=== PATIENT | female | born 1985 | race Caucasian/White ===

== ENCOUNTER 2018-07-05 03:57 | Inpatient (IN) | payer OTHER ==
[2018-07-05] MEDS ORDERED: LIDOCAINE 1% (MPF) 30 ML INJ INJ (05:00)
[2018-07-05] MEDS ORDERED: CARBOPROST 250 MCG INJ IM (05:00)
[2018-07-05] MEDS ORDERED: OXYTOCIN 30 UNITS/LR 500 ML IV (05:00)
[2018-07-05] MEDS ORDERED: IBUPROFEN 600 MG TAB PO (05:00)
[2018-07-05] MEDS ORDERED: MISOPROSTOL 200 MCG TAB PR (05:00)
[2018-07-05] MEDS ORDERED: BUTORPHANOL 2 MG INJ IV (05:00)
[2018-07-05 06:19] LABS: ADD MAN DIFF? NO
[2018-07-05 06:22] LABS: BASOPHIL # 0.1 10^3/ul (0.0-0.1); BASOPHILS % 0.4 % (0.0-2.0); EOSINOPHILS # 0.1 10^3/ul (0.0-0.5); EOSINOPHILS % 0.7 % (0.0-7.0); HEMATOCRIT 34.4 % (37.0-47.0); HEMOGLOBIN 11.9 g/dl (12.0-16.0); LYMPHOCYTES # 2.1 10^3/ul (0.8-2.9); LYMPHOCYTES % 17.5 % (15.0-51.0); MEAN CORPUSCULAR HGB CONC 34.6 g/dl (32.0-37.0); MEAN CORPUSCULAR VOLUME 92.5 fl (82.0-101.0); MEAN PLATELET VOLUME 10.7 fl (7.4-10.4); MONOCYTE # 1.1 10^3/ul (0.3-0.9); MONOCYTES % 9.1 % (0.0-11.0); NEUTROPHIL # 8.6 10^3/ul (1.6-7.5); NEUTROPHILS % 71.8 % (39.0-77.0); PLATELET COUNT 190 10^3/UL (140-415); RED BLOOD COUNT 3.72 10^6/ul (4.20-5.40)
[2018-07-05 06:28] LABS: INR 0.83; PROTIME 11.5 Sec (11.9-14.9); PT RATIO 0.9
[2018-07-05 06:29] LABS: PARTIAL THROMBOPLASTIN TIME 26.7 Sec (23.0-35.0)
[2018-07-05] MEDS: LACTATED RINGER'S 1,000 ML IV ×4 (06:48→17:42)
[2018-07-05 07:11] LABS: HEPATITIS B SURFACE ANTIGEN NEGATIVE (NEGATIVE)
[2018-07-05] MEDS ORDERED: HYDROmorphONE 0.5 MG/0.5 ML SYG IV ×2 (10:30)
[2018-07-05] MEDS ORDERED: ZOLPIDEM 5 MG TAB PO (10:30)
[2018-07-05] MEDS ORDERED: KETOROLAC 30 MG INJ IV (10:30)
[2018-07-05] MEDS ORDERED: NALOXONE (0.4 MG/ML) INJ IV (10:30)
[2018-07-05] MEDS: ONDANSETRON 4 MG INJ IV (12:17)
[2018-07-05] MEDS: DIPHENHYDRAMINE 50 MG INJ IV (12:45)
[2018-07-05] MEDS: OXYTOCIN 30 UNITS/LR 500 ML IV (16:29)
[2018-07-05 16:51] LABS: RAPID PLASMA REAGIN NONREACTIVE (NR)
[2018-07-05] MEDS: ACETAMINOPHEN 500 MG TAB PO ×2 (17:05→21:34)
[2018-07-05] MEDS: FENTAnyl 2MCG/ML-ROPIV 0.2% 100 ML BAG EPI (18:26)
[2018-07-05] MEDS: CLINDAMYCIN 900 MG/D5W (PMX) 50 ML IVPB (20:29)
[2018-07-06] MEDS: MINERAL OIL LIGHT 10 ML VIAL TOP (00:07)
[2018-07-06] MEDS: METHYLERGONOVINE 0.2 MG INJ IM (00:07)
[2018-07-06] MEDS: OXYTOCIN 30 UNITS/LR 500 ML IV ×3 (00:09→04:40)
[2018-07-06] MEDS ORDERED: MISOPROSTOL 200 MCG TAB PR (00:30)
[2018-07-06] MEDS: LACTATED RINGER'S 1,000 ML IV* ×3 (00:30→13:00)
[2018-07-06] MEDS ORDERED: OXYTOCIN 30 UNITS/LR 500 ML IV (00:30)
[2018-07-06] MEDS ORDERED: CARBOPROST 250 MCG INJ IM (00:30)
[2018-07-06] MEDS ORDERED: METHYLERGONOVINE 0.2 MG INJ IM (00:30)
[2018-07-06] MEDS: BENZOCAINE 20% 56 ML SPRAY TOP (04:40)
[2018-07-06] MEDS: WITCH HAZEL/GLYCERIN PAD PR (04:40)
[2018-07-06] MEDS: LANOLIN HPA 1 PKT TOP (04:41)
[2018-07-06] MEDS: IBUPROFEN 600 MG TAB PO ×4 (05:22→22:20)
[2018-07-06] MEDS ORDERED: IBUPROFEN 600 MG TAB PO (22:30)
[2018-07-07] MEDS: LACTATED RINGER'S 1,000 ML IV* (00:30)
[2018-07-07] MEDS: IBUPROFEN 600 MG TAB PO ×2 (05:14→12:33)
[2018-07-07 08:25] LABS: ADD MAN DIFF? NO
[2018-07-07 08:38] LABS: BASOPHILS % 0.4 % (0.0-2.0); EOSINOPHILS # 0.1 10^3/ul (0.0-0.5); HEMATOCRIT 25.1 % (37.0-47.0); HEMOGLOBIN 8.4 g/dl (12.0-16.0); LYMPHOCYTES % 18.4 % (15.0-51.0); MEAN CORPUSCULAR HEMOGLOBIN 32.3 pg (29.0-33.0); MEAN CORPUSCULAR HGB CONC 33.5 g/dl (32.0-37.0); MEAN CORPUSCULAR VOLUME 96.5 fl (82.0-101.0); MEAN PLATELET VOLUME 10.5 fl (7.4-10.4); MONOCYTE # 0.8 10^3/ul (0.3-0.9); MONOCYTES % 7.2 % (0.0-11.0); NEUTROPHILS % 72.1 % (39.0-77.0); PLATELET COUNT 150 10^3/UL (140-415); RED CELL DISTRIBUTION WIDTH 12.8 % (11.5-14.5)
[2018-07-07 08:38] LABS: WHITE BLOOD COUNT 11.1 10^3/ul (4.8-10.8)
[2018-07-07] MEDS: DIPHTH/TET/ACEL PERTUSS (ADULT) 0.5 ML VIAL IM* (09:24)
[2018-07-07] MEDS: DIBUCAINE 1% 30 GM OINT TOP (09:42)
[2018-07-07] MEDS: INFLUENZA VIRUS VACCINE 0.5 ML (DISPENSING) IM* (09:44)
== END 2018-07-07 15:59 | disposition home or self-care (01) | DRG 807 ==
LOC: OBT 03:57 → PP1 07-06 02:18 → L-D 03:57 → OBT 04:30 → L-D 04:30
PROVIDERS: Obstetrics & Gynecology
PROC: 10E0XZZ Delivery of Products of Conception, External Approach (ICD-10-PCS; principal; 2018-07-06)
PROC: 0KQM0ZZ Repair Perineum Muscle, Open Approach (ICD-10-PCS; 2018-07-06)
DX: O70.1 Second degree perineal laceration during delivery (principal); Z37.0 Single live birth; O69.81X0 Labor and delivery complicated by cord around neck, without compression, not applicable or unspecified; Z3A.38 38 weeks gestation of pregnancy
CPT/HCPCS: 62319; 85025; 85610; 85730; 86592; 86850; 86900; 86901; 87340; 90686